=== PATIENT | female | born 1970 | race Caucasian/White ===

== ENCOUNTER 2018-06-23 19:18 | Emergency (ER) | payer OTHER ==
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
[2018-06-23 19:42] VITALS: BP 131/94; PULSE 90; TEMP 99; BMI 35.1
== END 2018-06-23 21:34 | disposition home or self-care (01) ==
LOC: FER 19:18
DX: M62.838 Other muscle spasm (principal); V43.52XA Car driver injured in collision with other type car in traffic accident, initial encounter; Y93.89 Activity, other specified; Y92.410 Unspecified street and highway as the place of occurrence of the external cause
CPT/HCPCS: 72050-TC-FY; 84703; 99281-25